=== PATIENT | female | born 1975 | race Caucasian/White ===

== ENCOUNTER 2017-12-11 13:15 | Inpatient (IN) | payer OTHER ==
[~2017-12-11] VITALS: Ht 170.2 cm; Wt 90.7 kg
--- NOTE | 2017-12-11 16:18 | NUR ---
ADMISSION Pt 42 y/o female admitted for etoh withdrawal. This is pt's time in treatment. Pt lives at home with daughter, but pt was referred to acute detox after meeting with her new therapist that she was referred to. Pt states is recently going through a difficult divorce. Pt states, " When he has our daughter, I think he purposely does not let her call me to spite me". Pt with tearful episodes during assessment. Pt is not intoxicated and states last drink was 1 beer this morning, and also had librium 50mg this morning as well. Pt bilateral arms shaky/tremulous. Pt with unsteady gate, note able to stand straight properly. Pt states longest period of sobriety is 3 months prior to relapse. Pt states etoh has greatly impacted her life. Pt states, " I can't keep going down this road. I feel like I'm going to and I can't. I have a 7 year old girl to watch after!". Pt alert and oriented to name, place, and time. Perrla. Skin warm and moist to touch. Respirations even and unlabored. Bilateral arm tremors noted. Pt anxious and restless. Pt appears disheveled, observed with half jacket, with one sleeve on and one sleeve off. Hair uncombed. Pt with poor eye contact, frequently staring at the floor during assessment. Pt guarded on approach. Pt states was seeing a new therapist recently. Pt seen and evaluated by and started on prn ativan. Initial ciwa=16. DT=425/99 P=108 O2=97@RA R=18 T=98.0. Explained unit rules to pt with acknowledgment.
--- NOTE | 2017-12-11 16:25 | NUR ---
ADMISSION Pt 42 y/o female admitted for etoh withdrawal. This is pt's time in treatment. Pt lives at home with daughter, but pt was referred to acute detox after meeting with her new therapist that she was referred to. Pt states is recently going through a difficult divorce. Pt states, " When he has our daughter, I think he purposely does not let her call me to spite me". Pt with tearful episodes during assessment. Pt is not intoxicated and states last drink was 1 beer this morning, and also had librium 50mg this morning as well. Pt bilateral arms shaky/tremulous. Pt with unsteady gate, note able to stand straight properly. Pt states longest period of sobriety is 3 months prior to relapse. Pt states etoh has greatly impacted her life. Pt states, " I can't keep going down this road. I feel like I'm going to and I can't. I have a 7 year old girl to watch after!". Pt alert and oriented to name, place, and time. Perrla. Skin warm and moist to touch. Respirations even and unlabored. Bilateral arm tremors noted. Pt anxious and restless. Pt appears disheveled, observed with half jacket, with one sleeve on and one sleeve off. Hair uncombed. Pt with poor eye contact, frequently staring at the floor during assessment. Pt guarded on approach. Pt states was seeing a new therapist recently. Pt seen and evaluated by and started on prn ativan. Initial ciwa=16. XI=981/99 P=108 O2=97@RA R=18 T=98.0. Black/bluish skin discoloration on right arm noted. Pt states is unaware of it. Oriented pt to unit and room. substance hx: - etoh tequila 1 bottle(750mL) daily x 8 days. Last had 1 beer on 12/11/17. Total 27 years. - LIbrium po. Pt states started taking this on 09/2017 and was instructed to taper down per pt's PCP. Last took 12/11/17 50 mg. medical hx: anxiety, depressive, thyroiditis.
[2017-12-11] MEDS ORDERED: MIRALAX 17 GM POWD.PACK PO PRN (16:45)
[2017-12-11] MEDS ORDERED: ONDANSETRON 4 MG/2 ML VIAL IV PRN (16:45)
[2017-12-11] MEDS ORDERED: MAG HYDROX/AL HYDROX/SIMETH 30 ML LIQUID UDC PO PRN (16:45)
[2017-12-11] MEDS ORDERED: IBUPROFEN 400 MG TABLET PO PRN (16:45)
[2017-12-11] MEDS ORDERED: diphenhydrAMINE 50 MG CAPSULE PO PRN (16:45)
[2017-12-11] MEDS ORDERED: MAGNESIUM HYDROXIDE 30 ML LIQUID UDC PO PRN (16:45)
[2017-12-11] MEDS ORDERED: THIAMINE HCL 200 MG/2 ML VIAL IM ONE (16:45)
[2017-12-11] MEDS ORDERED: ONDANSETRON ODT 4 MG TAB.RAPDIS SL PRN (16:45)
[2017-12-11] MEDS ORDERED: LORAZEPAM 2 MG/1 ML VIAL IM PRN (16:45)
[2017-12-11] MEDS ORDERED: LOPERAMIDE HCL 2 MG CAPSULE PO PRN ×2 (16:45)
[2017-12-11] MEDS ORDERED: ESCI10TA PO (17:30)
[2017-12-11] MEDS ORDERED: CHLO25CA22 PO (17:30)
[2017-12-11 17:34] LABS: *URINE HCG, QUAL NEGATIVE (NEGATIVE)
[2017-12-11] MEDS: LORAZEPAM 1 MG TABLET PO PRN ×3 (17:36→22:03)
--- NOTE | 2017-12-11 17:36 | NUR ---
PRN ATIVAN and BENTYL Pt anxious and restless, very fidgety. Pt with gross bilateral hand tremors, to a point where pt is unable to stand independently. Pt with tearful episodes. Pt very irritable , raising voice at time. Pt also observed grinding teeth. ciwa=16. Ativan 2mg po prn per MD order given and tolerated well. Catapres po prn per MD order given and tolerated well. Pt also with c/o generalized pain 5/10. Pt states it feels likes aches all over her body. tylenol po prn per MD order given and tolerated well.
[2017-12-11 17:48] LABS: *AMPHETAMINE, URINE NEGATIVE (NEGATIVE); *BARBITURATE, URINE NEGATIVE (NEGATIVE); *CANNABINOID, URINE NEGATIVE (NEGATIVE); *COCCAINE, URINE NEGATIVE (NEGATIVE); *OPIATE, URINE NEGATIVE (NEGATIVE); *PHENCYCLIDINE SCREEN,URINE NEGATIVE (NEGATIVE)
[2017-12-11] MEDS: ACETAMINOPHEN 325 MG TABLET PO PRN (18:16)
[2017-12-11] MEDS: CLONIDINE HCL 0.1 MG TABLET PO PRN (18:17)
--- NOTE | 2017-12-11 18:36 | NUR ---
PRN EVAL ATIVAN, CATAPRES, TYLENOL Pt observed in room on bed. Tremors have significantly decreased. Pt still with tearful episodes but with less frequency. Pt stopped grinding teeth. ciwa=8. Pt states pain 2/10.
[2017-12-11] MEDS: IV NS 1000 ML 1,000 ML IV PRN (18:44)
--- NOTE | 2017-12-11 19:30 | NUR ---
START OF SHIFT NOTE: Endorsed patient is a 42 year old female admitted on 12/11/2017 at 1630 for Alcohol (Beer,White Wine, and Whisky) withdrawal, placed on PRN Medications, i.e. PRN Ativan, which tolerated well. Withdrawal symptoms closely monitored. Patient is alert and oriented x4, ambulatory with unsteady gait. 1:1 sitter at bedside for safety, as ordered. The patient reports allergy to Penicillin, Regular Diet, is on Fall and Seizures Precautions. Patient denies history of seizures. Her speech is soft and clear. The patient appears sad, with anxious mood and labile affect. Reassuring provided. Encouraged to express her feelings. Patient noted disheveled, unkempt, with uncombed hair. Educated in safety and hygiene care. Encouraged to independently perform hygiene care. The most recent CIWA=16 at 1625, per outgoing day shift nurse report: The patient presented with moderate withdrawal symptoms of anxiety, agitation, nervousness, irritability, sweating, abdominal cramps, nausea, restlessness, tremors, and fatigue. Respirations are even and unlabored. Patient denies SOB, chest pain, and cough. Skin is intact, warm, and dry to touch. The bruises on Upper Right arm noted. PRN Ativan 2 mg PO administrated for CIWA=16 at 1736, PRN Clonidine 0.1 mg PO for anxiety administrated at 1817, IV started on Left Forearm with 22G by day shift nurse, as ordered, and IV infusion with Sodium Chloride 0.9% 1,000 ml at 125/hr started at 1844, as ordered. The patient tolerated well. The patient remains compliant with treatment, medications, and diet regime. Encouraged to fluids intake as tolerated. Safe and calm environment with minimized noises was provided. All needs met. Safety measures in place: Call light within reach, bed is locked in lowest position, and padded bed rails up bilaterally. Patient endorsed by outgoing day shift nurse. Will continue to monitor closely.
--- NOTE | 2017-12-11 19:53 | NUR ---
PRN ATIVAN 2 MG PO AND PRN BENADRYL 50 MG PO ADMINISTRATION PRN Ativan 2 mg PO administrated as ordered for CIWA=17, and PRN Benadryl 50 mg PO administrated as ordered for insomnia with full glass of water. Patient tolerated well. Safe and calm environment with minimized noises was provided. All needs met. Safety measures in the place: Call light within reach, bed locked in the lowest position, padded rails up x2. 1:1 sitter at bedside for safety. Will continue to monitor closely.
[2017-12-11 20:00] VITALS: BP 138/89
--- NOTE | 2017-12-11 20:53 | NUR ---
PRN ATIVAN PO AND PRN BENADRYL PO RE-ASSESSMENT PRN Ativan 2 mg PO administrated for CIWA=17 at 1952, and PRN Benadryl 50 mg PO administrated for insomnia at 1952 was no effective. The patient reports, "I can't sleeping because my anxiety the same" . Safe and calm environment with minimized noises was provided. All needs met. Safety measures in the place: Call light within reach, bed locked in the lowest position, padded rails up x2. 1:1 sitter at bedside for safety. Will continue to monitor closely. Addendum: 12/11/17 at 3 by STACIE PILLAI RN Patient re-assessment: CIWA=16
[2017-12-11 21:05] LABS: BASOPHILS # (AUTO) 0.1 K/uL (0.0-8.0); BASOPHILS % (AUTO) 0.8 % (0.0-2.0); EOSINOPHILS # (AUTO) 0.1 K/uL (0.0-0.7); EOSINOPHILS % (AUTO) 0.8 % (0.0-7.0); HEMATOCRIT 35.2 % (31.2-41.9); HEMOGLOBIN 12.2 g/dL (10.9-14.3); LYMPHOCYTES # (AUTO) 1.7 K/uL (20.0-40.0); LYMPHOCYTES % (AUTO) 21.4 % (20.5-51.5); MEAN CORPUSCULAR HGB CONC 35 g/dL (32.3-35.6); MEAN CORPUSCULAR VOLUME 92.4 fL (75.5-95.3); MONOCYTES # (AUTO) 0.5 K/uL (2.0-10.0); MONOCYTES % (AUTO) 6.7 % (0.0-11.0); NEUTROPHILS # (AUTO) 5.4 K/uL (1.8-8.9); NEUTROPHILS % (AUTO) 70.3 % (38.5-71.5); PLATELET COUNT (AUTO) 181 K/uL (179-408); RED BLOOD CELL COUNT(AUTO) 3.81 MIL/uL (3.63-4.92); WHITE BLOOD COUNT (AUTO) 7.7 K/uL (3.8-11.8)
[2017-12-11 21:28] LABS: ETHANOL < 3 MG/DL (0-0)
[2017-12-11 21:34] LABS: ALANINE AMINOTRANSFERASE 37 U/L (14-59); ALKALINE PHOSPHATASE 36 U/L (50-136); AMYLASE 38 U/L (25-115); ASPARTATE AMINOTRANSFERASE 36 U/L (15-37); BILIRUBIN,TOTAL 0.9 mg/dL (0.2-1.0); CARBON DIOXIDE 24 mmol/L (21-32); CREATININE 0.6 mg/dL (0.6-1.3); GLUCOSE 98 mg/dL (74-106); LIPASE 88 U/L (73-393); TOTAL PROTEIN, SERUM 5.7 g/dL (6.4-8.2)
[2017-12-11 21:42] LABS: CHLORIDE 106 mmol/L (98-107); UREA NITROGEN, BLOOD 6 mg/dL (7-18)
[2017-12-11 21:43] LABS: THYROID STIMULATING HORMONE 2.412 mIU/mL (0.358-3.740)
[2017-12-11 21:48] LABS: POTASSIUM 2.8 mmol/L (3.5-5.1)
[2017-12-11 21:49] LABS: MAGNESIUM 1.2 mg/dL (1.8-2.4)
[2017-12-11] MEDS: DICYCLOMINE HCL 20 MG TABLET PO PRN (22:03)
--- NOTE | 2017-12-11 22:03 | NUR ---
PRN ATIVAN 2 MG PO AND PRN BENTYL 20 MG PO ADMINISTRATION PRN Ativan 2 mg PO administrated for CIWA=16, and PRN Bentyl 20 mg PO administrated for abdominal spasm with full glass of water. Patient tolerated well. Safe and calm environment with minimized noises was provided. All needs met. Safety measures in the place: Call light within reach, bed locked in the lowest position, padded rails up x2. 1:1 sitter at bedside for safety. Will continue to monitor closely.
[2017-12-11] MEDS ORDERED: MAGNESIUM OXIDE 400 MG TABLET PO ONE (22:45)
[2017-12-11] MEDS ORDERED: POTASSIUM CHLORIDE 20 MEQ TAB.PRT.SR PO ONE (22:45)
--- NOTE | 2017-12-11 23:03 | NUR ---
PRN ATIVAN PO AND PRN BENTYL PO RE-ASSESSMENT PRN Ativan 2 mg PO administrated for CIWA=16 at 2203, and PRN Bentyl 20 mg PO administrated for abdominal spasm at 2203 was effective. The patient is sleeping. RR: 16. Respirations are even and unlabored. Safe and calm environment with minimized noises was provided. All needs met. Safety measures in the place: Call light within reach, bed locked in the lowest position, padded rails up x2. 1:1 sitter at bedside for safety. Will continue to monitor closely.
--- NOTE | 2017-12-11 23:13 | NUR ---
POTASSIUM : 2.8 AND MAGNESIUM: 1.2 SUPPLEMENTED WITH K-DUR (POTASSIUM CHLORIDE) 40 MEQ PO AND MAG-OX (MAGNESIUM OXIDE) 800 MG PO ADMINISTRATED WITH FULL GLASS OF WATER, ORDERED. PATIENT TOLERATED WELL.
[2017-12-12] VITALS: BP 138/87
[2017-12-12] MEDS: IV NS 1000 ML 1,000 ML IV PRN (02:48)
[2017-12-12 04:00] VITALS: BP 134/78
[2017-12-12] MEDS: DICYCLOMINE HCL 20 MG TABLET PO PRN ×2 (04:42→14:40)
[2017-12-12] MEDS: LORAZEPAM 1 MG TABLET PO PRN ×5 (04:42→21:33)
--- NOTE | 2017-12-12 04:42 | NUR ---
PRN ATIVAN 1 MG PO AND PRN BENTYL 20 MG PO ADMINISTRATION PRN Ativan 1 mg PO administrated as ordered for CIWA=12, and PRN Bentyl 20 mg PO administrated as ordered for abdominal spasm with full glass of water. Patient tolerated well. Safe and calm environment with minimized noises was provided. All needs met. Safety measures in the place: Call light within reach, bed locked in the lowest position, padded rails up x2. 1:1 sitter at bedside for safety. Will continue to monitor closely.
--- NOTE | 2017-12-12 05:42 | NUR ---
PRN ATIVAN PO AND PRN BENTYL PO RE-ASSESSMENT PRN Ativan 1 mg PO administrated as ordered for CIWA=12 at 0442, and PRN Bentyl 20 mg PO administrated as ordered for abdominal spasm at 0442 was effective. The patient is sleeping. RR: 16. Respirations are even and unlabored. Safe and calm environment with minimized noises was provided. All needs met. Safety measures in the place: Call light within reach, bed locked in the lowest position, padded rails up x2. 1:1 sitter at bedside for safety. Will continue to monitor closely.
--- NOTE | 2017-12-12 07:15 | NUR ---
END OF SHIFT NOTE Presented patient is a 42 old female admitted for Alcohol (Whisky, White /Red Wine, and Beer) withdrawal. Withdrawal symptoms closely monitored. Patient is alert and oriented x4, ambulatory with unsteady gait. Her speech is loud and clear. The patient reports allergy to Penicillin, Regular Diet, is on Fall and Seizures Precautions. Patient denies history of seizures. The patient denies SI/HI. She is noted easy overwhelmed, with anxious mood and liable affect. Patient presented with anxiety, agitation, depression, nervousness, irritability, tremors, sweating, abdominal spasms, generalized body aches, headache, fatigue, and restlessness. [place]=17 [place] [address], CIWA=16 at 2203, CIWA=12 at 0000. The most recent CIWA=14 at 0400. Skin remains intact, warm, and dry to touch. PRN Ativan 2 mg PO administrated for CIWA=17 at 1953, and PRN Benadryl 50 mg PO administrated for insomnia at 1952 was no effective, PRN Ativan 2 mg PO administrated for CIWA=16 at 2202, and PRN Bentyl 20 mg PO administrated for abdominal spasm at 2203, PRN Ativan 1mg PO administrated for CIWA=12 at 0442, and PRN Bentyl 20 mg PO administrated for abdominal spasm at 0442, and were effective. Potassium 2.8, and Magnesium 1.2 supplemented with K-Dur (Potassium Chloride) 40 MEQ PO and MAG-Ox (Magnesium Oxidate) 800 mg PO administrated as ordered at 2313. IV infusion with Sodium Chloride 0.9% at 125 ml/hr second bag since 247, as ordered. IV line is patent and intact on Left Forearm , flashed with NS. Patient remains compliant with medications, treatment, and diet regimen. Patient slept for 6 hours, intake 1,500 ml, voided x3. 1:1 sitter at bedside for safety, as ordered. All needs met. Safety measures in the place by hospital policy: Call light within reach, bed in the lowest position and locked, padded rails up x2. Patient endorsed to day shift nurse in stable condition, report given.
--- NOTE | 2017-12-12 07:30 | NUR ---
START OF SHIFT Pt 42 y/o female admitted for etoh withdrawal. Pt received in room on bed with eyes closed resting, but easily arousable to name. Pt alert and oriented to name, place, and time. Perrla. Skin warm and moist to touch. Respirations even and unlabored. Bilateral hand tremors noted. Pt appears disheveled. Empty drink bottles scattered throughout the room. Encouraged to maintain hygiene. Pt with sitter 1:1 for safety. Peripheral IV on left FA 24g intact and in place with no redness or infiltration noted and is infusing NS @125mL/hr and is tolerating well. It was reported that pt slept for 6 hours last night. Pt is on prn ativan. It was reported that pt was given ativan po prn per MD order given for symptoms of withdrawal last night. Bed on lowest position with side rails x2 up for safety. Call light within reach.
[2017-12-12 08:00] VITALS: BP 136/82
[2017-12-12] MEDS ORDERED: TUBERCULIN,PURIF.PROT.DERIV. 5 TU/0.1 ML TEST ID ONE (09:00)
[2017-12-12] MEDS ORDERED: MAGNESIUM OXIDE 400 MG TABLET PO ONE (09:00)
[2017-12-12] MEDS ORDERED: POTASSIUM CHLORIDE 20 MEQ TAB.PRT.SR PO ONE (09:00)
[2017-12-12] MEDS: THIAMINE HCL 100 MG TABLET PO SCH (09:35)
[2017-12-12] MEDS: MULTIVITAMINS,THERAPEUTIC TABLET PO SCH (09:35)
[2017-12-12] MEDS: ESCITALOPRAM OXALATE 10 MG TABLET PO SCH (09:35)
[2017-12-12] MEDS: FOLIC ACID 1 MG TABLET PO SCH (09:39)
--- NOTE | 2017-12-12 09:47 | NUR ---
PRN ATIVAN pt anxious and restless. Pt very irritable with raised voice and observed grinding teeth. Bilateral hand tremors noted. Ciwa=11. Ativan 1mg po prn per MD order given and tolerated well.
--- NOTE | 2017-12-12 09:57 | NUR ---
PRN ZOFRAN Pt with c/o nausea. Pt states her stomach is bothering her and that bentyl was ineffective. Zofran odt prn per MD order given and tolerated well.
--- NOTE | 2017-12-12 10:47 | NUR ---
PRN ATIVAN EVAL Pt observed in bed with eyes closed resting, but easily arousable to name. ciwa=6.
--- NOTE | 2017-12-12 10:57 | NUR ---
PRN ZOFRAN EVAL Pt denies any nausea at this time.
[2017-12-12 12:00] VITALS: BP 135/73
[2017-12-12] MEDS: ACETAMINOPHEN 325 MG TABLET PO PRN ×2 (14:40→21:31)
--- NOTE | 2017-12-12 14:42 | NUR ---
PRN TYLENOL, BENTYL, ATIVAN, IMMODIUM Pt restless, fidgety in bed. Pt anxious and observed bilateral hand tremors. Pt also stated very irritable. Ativan 1 mg po prn per MD order given and tolerated well. Pt states had 1 diarrhea episode unwitnessed. Immodium po prn per MD order given and tolerated well. Pt also states has stomach cramps and generalized body pain 5/10. tylenol po prn per MD order given and tolerated well. Bentyl po prn per MD order given and tolerated well.
--- NOTE | 2017-12-12 15:30 | NUR ---
IV Peripheral DC'D and pt tolerated well.
--- NOTE | 2017-12-12 15:42 | NUR ---
ANDRÉS TORRE ATIVAN IMMODIUM Pt observed in room on bed watching television. Slight bilateral hand tremors noted. ciwa=6. Pt states generalized body pain 2/10. Pt denies any stomach cramps at this time. Pt denies any episode of diarrhea at this time.
[2017-12-12 16:00] VITALS: BP 125/61
--- NOTE | 2017-12-12 16:10 | NUR ---
ATIVAN PRN Pt with bilateral hand tremors. Pt anxious and irritable. ciwa=9. Pt refused ativan 1 mg po prn per MD order. Pt states, " I don't want to take it anymore."
--- NOTE | 2017-12-12 18:20 | NUR ---
PRN ATIVAN pt with ciwa=13. Bilateral hand tremors noted. Pt anxious sitting on bed with some tearful episodes. MD aware. Ativan 2mg po prn per MD order given and tolerated well.
--- NOTE | 2017-12-12 18:56 | NUR ---
END OF SHIFT Pt 42 y/o female admitted for etoh withdrawal. Pt alert and oriented to name, place, and time. P[place]. Skin warm and moist to touch. Respirations even and unlabored. Bilateral hand tremors noted. Pt appears disheveled. Empty drink bottles scattered throughout the room. Encouraged to maintain hygiene. Pt with periods of anxiety throughout the morning. Pt irritable this morning, mainly because pt did not want have a 1:1 sitter to monitor for safety for unsteady gait. 1:1 sitter was dc'd this morning. Pt observed isolative to room throughout the whole day. Pt with no peer interaction. Pt did not attend group activity. Pt was seen by MD today. Pt medication compliant and tolerated well. No ASE noted. Pt is on a prn ativan. Last ciwa=9@1600, but pt was refusing to take prn ativan per MD order. Pt did receive ativan po prn per MD order for ciwa=11. Pt also received zofran prn per MD order for nausea this morning. Pt also received bentyl po prn per MD order for stomach cramps. Pt also received imodium po prn per MD order for 1 episode of diarrhea this morning. Bed on lowest position with side rails x2 up for safety. Call light within reach.
--- NOTE | 2017-12-12 19:20 | NUR ---
PRN ATIVAN EVAL Pt observed in bed in room. Bilateral hand tremors subsided slightly. ciwa=6
--- NOTE | 2017-12-12 19:30 | NUR ---
Start of Shift Pt found in room resting, arousable to voice. Admitted day prior on 12/11/17 for medically managed withdrawal/detox from ETOH, with PMH of "Thyroiditis", depression and anxiety, allergic to PCN, full code on a regular diet. Per report and per patient to be discharged in am on 12/13/17, pt saying "That was the condition I checked in under. 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 Pt anxious and agitated/fidgety, fearful, disheveled hair and avoidant eye contact, confrontational/challenging/labile, appears manic. Sweats/chills, nausea improved from day. Pt hyperverbal, stating that she's been told all day Dr would see her in afternoon. Pt reassured MD will see her when he makes rounds, and certainly before she leaves at "11am". Pt inquiring what "bruise" on upper right arm is but insists it isn't a bruise. Pt asks if Vit B-1 shot to l deltoid usually leaves such a delon (bruise). Pt states that "yes, I do bruise easily but these aren't bruises". Pt hypervigilent regarding seeing Dr, wanting to review labs, and d/c plan with prescriptions. CN notified of pt interest. Pt has PRN Ativan available Will continue to monitor, and reassure Pt
[2017-12-12 20:00] VITALS: BP 130/74
[2017-12-12] MEDS: GABAPENTIN 300 MG CAPSULE PO SCH (21:00)
--- NOTE | 2017-12-12 21:00 | NUR ---
Scheduled Med Refusal Neurontin 300mg PO refused. Pt has not taken it before, and states she will be getting d/c'd in am and doesn't want to start anything new she doesn't know. Med explained, action and benefits. Pt requests PRN meds Ativan, Clonidine, and Tylenol instead
[2017-12-12] MEDS: CLONIDINE HCL 0.1 MG TABLET PO PRN (21:32)
--- NOTE | 2017-12-12 21:33 | NUR ---
PRN Meds Ativan 2mg PO, Clonidine 0.1mg given for anxiety/agitation and w/d, CIWA 20. Tylenol 650mg PO given for R upper arm pain 5/10, aching. Will continue to monitor, reassessing in 1 hour.
--- NOTE | 2017-12-12 22:33 | NUR ---
PRN Reassessment Ativan 2mg PO and Clonidine 0.1mg PO for CIWA 20- anxiety, agitation, sweats/chills, Tylenol 650mg PO for R upper arm pain 5/10 (aching) given 1 hour prior. At present pt is sleeping, RR 16, even and nonlabored. Meds effective. Will continue to monitor for any s/s's pain or w/d.
[2017-12-13] VITALS: BP 95/51
--- NOTE | 2017-12-13 | NUR ---
Midnight CIWA Deferred 0000 VS's obtained/stable. CIWA deferred/refused r/t pt sleeping/refused. Will continue to monitor for any s/s's pain or w/d for duration of shift
[2017-12-13 04:00] VITALS: BP 110/63
--- NOTE | 2017-12-13 04:00 | NUR ---
CIWA Deferred VS's obtained/stable. CIWA deferred r/t pt sleeping/refused. Will continue to monitor for s/s's pain or w/d.
--- NOTE | 2017-12-13 07:25 | NUR ---
End of Shift Endorsement given to day nurse. Admitted on 12/11/17 for medically managed withdrawal/detox from ETOH, with PMH of "Thyroiditis", and PPH of depression and anxiety, allergic to PCN, full code on a regular diet. Pt continues to present with diaphoresis, tremors, anxiety and agitation, sometimes crying when not immediately gratified. 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 Pt continues to tolerate the PRN Ativan PO well, have one 2mg PO dose, as well as Clonidine 0.1mg PO for anxiety, and Tylenol 650mg PO for R upper arm pain (what appears to be a bruise/purple). Pt did refuse 2100 dose of Neurontin 300mg PO. Last CIWA was 20 at 2000 hours. Pt slept for over 7 hours, with 796mls intake and 2 voids. Safety precautions remain in place, with bed in lowest position, both side rails up and padded, call light withing reach and no s/s's of distress noted and needs attended to.
--- NOTE | 2017-12-13 07:40 | NUR ---
START OF SHIFT Received report from rn shift mgr nurse. Pt is in her room getting ready for the day. She is a 42 yo female admitted to [facility] on 12/11 for ETOH withdrawal. PRN Ativan ordered for the management of withdrawal symptoms. She presents this morning with anxiety, tremors, and facial flushing. Pt is tearful and emotional. Provided support. She slept for 7 hours last night. Safety measures in place.
[2017-12-13 07:50] LABS: BASOPHILS % (AUTO) 0.9 % (0.0-2.0); EOSINOPHILS # (AUTO) 0.3 K/uL (0.0-0.7); EOSINOPHILS % (AUTO) 5.8 % (0.0-7.0); HEMATOCRIT 38.6 % (31.2-41.9); HEMOGLOBIN 13.2 g/dL (10.9-14.3); LYMPHOCYTES # (AUTO) 1.4 K/uL (20.0-40.0); LYMPHOCYTES % (AUTO) 31.3 % (20.5-51.5); MEAN CORPUSCULAR HEMOGLOBIN 32.1 uug (24.7-32.8); MEAN CORPUSCULAR HGB CONC 34 g/dL (32.3-35.6); MEAN CORPUSCULAR VOLUME 94.2 fL (75.5-95.3); MONOCYTES # (AUTO) 0.3 K/uL (2.0-10.0); MONOCYTES % (AUTO) 7.2 % (0.0-11.0); NEUTROPHILS # (AUTO) 2.5 K/uL (1.8-8.9); NEUTROPHILS % (AUTO) 54.8 % (38.5-71.5); PLATELET COUNT (AUTO) 170 K/uL (179-408); WHITE BLOOD COUNT (AUTO) 4.6 K/uL (3.8-11.8)
[2017-12-13 08:00] VITALS: BP 130/76
[2017-12-13 08:01] LABS: CREATININE 0.7 mg/dL (0.6-1.3); MAGNESIUM 2.1 mg/dL (1.8-2.4); PHOSPHOROUS 3.8 mg/dL (2.5-4.9); POTASSIUM 4.4 mmol/L (3.5-5.1)
[2017-12-13] MEDS: ESCITALOPRAM OXALATE 10 MG TABLET PO SCH (08:27)
[2017-12-13] MEDS: FOLIC ACID 1 MG TABLET PO SCH (08:27)
[2017-12-13] MEDS: GABAPENTIN 300 MG CAPSULE PO SCH (08:27)
[2017-12-13] MEDS: THIAMINE HCL 100 MG TABLET PO SCH (08:28)
[2017-12-13] MEDS: MULTIVITAMINS,THERAPEUTIC TABLET PO SCH (08:28)
[2017-12-13] MEDS: ACETAMINOPHEN 325 MG TABLET PO PRN (08:28)
--- NOTE | 2017-12-13 08:30 | NUR ---
PRN Tylenol Pt reports headache 11/29. PRN Tylenol administered.
--- NOTE | 2017-12-13 09:30 | NUR ---
PRN Tylenol reassessment PRN Tylenol somewhat effective. Pt's headache reduced to 4/10.
--- NOTE | 2017-12-13 10:48 | NUR ---
PRN Motrin Pt reports headache 09/29. PRN Motrin administered.
--- NOTE | 2017-12-13 11:25 | NUR ---
AMA Note Pt refused to comply with treatment and left AMA. Pt educated regarding the risks and consequences of leaving AMA. Pt verbalized understanding but was adamant about leaving. Multiple staff members including Dr. Mathews attempted to reason with patient without any success. Vital signs WNL, skin intact, pt denied SI/HI. MD and Psychiatrist are aware. Pt was given a list of community resources, AMA forms explained and signed, all belongings returned to patient. She left the facility on 12/13/17 at 1120.
[2017-12-13 14:06] LABS: HEPATITIS B SURFACE AG Negative (Negative)
== END 2017-12-13 11:20 | disposition left against medical advice (07) | DRG 894 ==
LOC: SRC 15:44
PROVIDERS: ADMIT Internal Medicine; ATTEND Internal Medicine
PROC: HZ2ZZZZ Detoxification Services for Substance Abuse Treatment (ICD-10-PCS; principal; 2017-12-11)
PROC: HZ51ZZZ Individual Psychotherapy for Substance Abuse Treatment, Behavioral (ICD-10-PCS; 2017-12-12)
DX: F10.232 Alcohol dependence with withdrawal with perceptual disturbance (principal); F33.0 Major depressive disorder, recurrent, mild; Y90.9 Presence of alcohol in blood, level not specified; R23.3 Spontaneous ecchymoses; F41.9 Anxiety disorder, unspecified; E06.9 Thyroiditis, unspecified; E87.6 Hypokalemia; E83.42 Hypomagnesemia; F13.90 Sedative, hypnotic, or anxiolytic use, unspecified, uncomplicated; R26.81 Unsteadiness on feet; Z91.89 Other specified personal risk factors, not elsewhere classified
CPT/HCPCS: 36415; 80307; 80346; 83690; 83735; 84100; 84443; 84703; 85025; 86580; 86592; 86705; 86803; 87340; 87806; G0480; J3411; J7030; Q0162; Q0163

== ENCOUNTER 2017-12-11 15:28 | Emergency (ER) | payer OTHER ==
--- NOTE | 2017-12-11 15:54 | NUR ---
[facility], PT WENT TO [facility] FOR ADMISSION
[2017-12-11] MEDS ORDERED: CHLO25CA22 PO (17:30)
[2017-12-11] MEDS ORDERED: ESCI10TA PO (17:30)
== END 2017-12-11 15:56 | disposition left against medical advice (07) ==
LOC: ER 15:28
DX: Z53.21 Procedure and treatment not carried out due to patient leaving prior to being seen by health care provider (principal)